=== PATIENT | male | born 1980 | race Caucasian/White ===

== ENCOUNTER 2017-12-14 16:43 | Emergency (ER) | payer OTHER ==
[2017-12-14] MEDS ORDERED: Sodium Chloride 0.9% 2.5 ML Syringe FLUSH PRN (16:44)
[2017-12-14] MEDS ORDERED: Sodium Chloride 0.9% 10 ML Syringe FLUSH PRN (16:44)
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
[2017-12-14] MEDS ORDERED: Morphine 4 MG/ML Syringe IVPUSH ONE (17:24)
[2017-12-14] MEDS ORDERED: Iopamidol 755 MG/ML 500 ML Multipack Bottle IVPUSH STA (17:33)
[2017-12-14 18:02] LABS: CHLORIDE,CL 102 mmol/L (98-107); SODIUM,NA 136 mmol/L (136-148)
[2017-12-14] MEDS: Diphtheria,Pertussis(Acell),Tetanus Vaccine 0.5 ML Syringe IM ONE ×2 (18:42→18:55)
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
== END 2017-12-14 19:05 | disposition home or self-care (01) ==
LOC: MW.ED 16:43
DX: S30.1XXA Contusion of abdominal wall, initial encounter (principal); V89.2XXA Person injured in unspecified motor-vehicle accident, traffic, initial encounter
CPT/HCPCS: 36415; 71260; 72125; 73120; 74177; 80053; 80305; 83690; 85025; 96374; 99285; G0390; G0480; J2270; Q9967; 90715

== ENCOUNTER 2022-12-12 21:21 | Emergency (ER) | payer MEDICAID | END 2022-12-12 22:52 | disposition home or self-care (01) | LOC: MW.ED 21:21 | DX: S82.842A Displaced bimalleolar fracture of left lower leg, initial encounter for closed fracture (principal); Z72.0 Tobacco use; X50.1XXA Overexertion from prolonged static or awkward postures, initial encounter | CPT/HCPCS: 29515; 73610-26-LT; 73610-LT; 99283; 99283-25 ==

== ENCOUNTER 2023-06-29 22:46 | Emergency (ER) | payer SELFPAY ==
[2023-06-29] MEDS ORDERED: Morphine 4 MG/ML Syringe IVPUSH ONE ×2 (22:57→23:36)
[2023-06-29] MEDS ORDERED: Sodium Chloride 0.9% 10 ML Syringe FLUSH PRN (22:57)
[2023-06-29] MEDS ORDERED: Lidocaine 4% 1 each Patch TOP ONE (22:57)
[2023-06-29] MEDS ORDERED: Sodium Chloride 0.9% 1,000 ML IV ONE (22:57)
[2023-06-29] MEDS ORDERED: Sodium Chloride 0.9% 2.5 ML Syringe FLUSH PRN (22:57)
[2023-06-29] MEDS ORDERED: Ondansetron 4 MG/2 ML SDV IVPUSH ONE (22:57)
[2023-06-29 23:07] LABS: BASOPHILS ABSOLUTE AUTO 0.03 K/uL (0.00-0.20); BASOPHILS PERCENT AUTO 0.3 % (0.0-1.0); EOSINOPHILS ABSOLUTE AUTO 0.02 K/uL (0.00-0.45); EOSINOPHILS PERCENT AUTO 0.2 % (0.0-6.0); HEMATOCRIT 44.8 % (42.0-52.0); HEMOGLOBIN 15.5 g/dL (14.0-18.0); IMMATURE GRAN ABSOLUTE AUTO 0.02 K/uL (0.00-0.05); IMMATURE GRAN PERCENT AUTO 0.2 % (0.0-0.4); LYMPHOCYTES ABSOLUTE AUTO 1.96 K/uL (1.00-4.80); LYMPHOCYTES PERCENT AUTO 17.4 % (24.0-44.0); MEAN CORPUSCULAR HEMOGLOBIN 30.5 pg (28.0-32.0); MEAN CORPUSCULAR HGB CONC 34.6 g/dL (32.0-36.0); MEAN PLATELET VOLUME 9.6 fL (9.4-12.4); MONOCYTES ABSOLUTE AUTO 0.78 K/uL (0.00-0.80); MONOCYTES PERCENT AUTO 6.9 % (0.0-8.0); NEUTROPHILS ABSOLUTE AUTO 8.48 K/uL (1.80-7.70); PLATELET COUNT,PLT 309 K/uL (150-400); RED BLOOD CELL COUNT 5.09 M/uL (4.52-5.90); WHITE BLOOD CELL COUNT,WBC 11.29 K/uL (3.9-11.3)
[2023-06-29 23:31] LABS: ALANINE AMINOTRANSFERASE,ALT 24 IU/L (14-63); ALBUMIN 3.9 g/dL (3.4-5.0); ALKALINE PHOSPHATASE 50 U/L (46-116); ASPARTATE AMNIOTRANSFERASE,AST 18 IU/L (15-37); BILIRUBIN TOTAL 0.7 mg/dL (0.2-1.0); BLOOD UREA NITROGEN,BUN 9 mg/dL (7.0-18.0); CALCIUM 9.1 mg/dL (8.5-10.1); CARBON DIOXIDE,CO2 28.7 mmol/L (21.0-32.0); CHLORIDE,CL 104 mmol/L (98-107); EST CRCL DRUG DOSING (CG) 97.21 mL/min; GLUCOSE RANDOM 125 mg/dL (74-106); LIPASE 18 U/L (16-77); POTASSIUM,K 3.9 mmol/L (3.5-5.1); PROTEIN TOTAL,TP 7.7 g/dL (6.4-8.2); SODIUM,NA 140 mmol/L (136-148)
[2023-06-29 23:32] LABS: ESTIMATED GFR 97 mL/min (>60)
[2023-06-29] MEDS ORDERED: Naloxone 0.4 MG/ML SDV IVPUSH PRN (23:36)
[2023-06-29] MEDS ORDERED: Iopamidol 755 MG/ML 500 ML Multipack Bottle IVPUSH ONE (23:50)
== END 2023-06-30 01:30 | disposition home or self-care (01) ==
LOC: MW.ED 22:46
DX: S22.32XA Fracture of one rib, left side, initial encounter for closed fracture (principal); S00.83XA Contusion of other part of head, initial encounter; R55 Syncope and collapse; W01.198A Fall on same level from slipping, tripping and stumbling with subsequent striking against other object, initial encounter
CPT/HCPCS: 36415; 70450; 71275; 72125; 74177; 80053; 83690; 84484; 85025; 96361; 96374; 96375; 96376; 99285; A9270; J2270; J2405; J3490; J7030; Q9967; 93010; 99284

== ENCOUNTER 2023-08-10 20:08 | Emergency (ER) | payer OTHER ==
[2023-08-10] MEDS ORDERED: Diphtheria,Pertussis(Acell),Tetanus Vaccine 0.5 ML Syringe IM ONE (21:19)
[2023-08-10] MEDS ORDERED: Cephalexin 500 MG Cap PO STA (21:19)
[2023-08-10] MEDS ORDERED: Octyl 2-Cyanoacrylate 1 g/1 mL 1 APPLIC PEN TOP STA (21:19)
[2023-08-10] MEDS ORDERED: Ibuprofen 800 MG Tab PO STA (21:22)
[2023-08-10] MEDS ORDERED: Acetaminophen 500 MG Tab PO STA (21:22)
== END 2023-08-10 22:30 ==
LOC: MW.ED 20:08
DX: S01.412A Laceration without foreign body of left cheek and temporomandibular area, initial encounter (principal); S01.512A Laceration without foreign body of oral cavity, initial encounter; Z02.89 Encounter for other administrative examinations; Z23 Encounter for immunization; Y04.2XXA Assault by strike against or bumped into by another person, initial encounter
CPT/HCPCS: 12011; 90471; 90715; 99283; A9270

== ENCOUNTER 2023-10-29 07:57 | Emergency (ER) | payer SELFPAY ==
[2023-10-29] MEDS: Morphine 4 MG/ML Syringe IVPUSH ONE (09:23)
[2023-10-29] MEDS: Ondansetron 4 MG/2 ML SDV IVPUSH ONE (09:24)
== END 2023-10-29 10:35 | disposition home or self-care (01) ==
LOC: MW.ED 07:57
DX: S62.637A Displaced fracture of distal phalanx of left little finger, initial encounter for closed fracture (principal); S01.01XA Laceration without foreign body of scalp, initial encounter; S20.222A Contusion of left back wall of thorax, initial encounter; Z86.19 Personal history of other infectious and parasitic diseases; Z75.8 Other problems related to medical facilities and other health care; Y00.XXXA Assault by blunt object, initial encounter
CPT/HCPCS: 12002; 70450; 71250; 72125; 73090; 73130; 96374; 96375; 99285; J2270; J2405; 99284

== ENCOUNTER 2023-11-14 22:00 | Emergency (ER) | payer SELFPAY | END 2023-11-14 23:05 | disposition left against medical advice (07) | LOC: MW.ED 22:00 | DX: Z48.02 Encounter for removal of sutures (principal) | CPT/HCPCS: 99281 ==

== ENCOUNTER 2023-11-17 16:59 | Emergency (ER) | payer SELFPAY | END 2023-11-17 18:23 | disposition left against medical advice (07) | LOC: MW.ED 16:59 | DX: Z53.21 Procedure and treatment not carried out due to patient leaving prior to being seen by health care provider (principal) ==